=== PATIENT | female | born 1955 | race Caucasian/White ===

== ENCOUNTER → 2020-06-23 14:46 | Outpatient (CLI) | payer OTHER, SELFPAY ==
[2020-06-23] MEDS: COVID-19 VACC, Ad26(JANSSEN)/PF 0.5 ML IM (14:52)
== END ==
PROVIDERS: PCP Student in an Organized Health Care Education/Training Program; Visit Provider Internal Medicine
DX: Z23 Encounter for immunization (principal)
CPT/HCPCS: 0031A; 91303

== ENCOUNTER → 2025-02-09 09:57 | Outpatient (CLI) | payer MEDICARE, OTHER, SELFPAY ==
[2025-02-09 11:08] LABS: Blood Urea Nitrogen 14 mg/dL (7-17); Calcium 8.9 mg/dL (8.4-10.2); Carbon Dioxide 20 mmol/L (22-32); Chloride 107 mmol/L (98-107); Estimated Glomerular Filt Rate > 60 mL/min (>60); Glucose 95 mg/dL (70-99); Magnesium 2.2 mg/dL (1.6-2.3); Potassium 4.5 mmol/L (3.4-5.1); Sodium 138 mmol/L (137-145)
[2025-02-09 11:09] LABS: HEMOLYSIS 76 (0-50)
[2025-02-09 11:38] LABS: Thyroid Stimulating Hormone 1.42 uIU/mL (0.47-4.68)
== END ==
PROVIDERS: Referring Provider Internal Medicine Cardiovascular Disease; Visit Provider Internal Medicine Cardiovascular Disease
DX: I49.1 Atrial premature depolarization (principal); R00.2 Palpitations
CPT/HCPCS: 36415; 80048; 83735; 84443